=== PATIENT | male | born 1950 | race Caucasian/White ===

== ENCOUNTER 2019-01-14 19:48 | Emergency (ER) | payer MEDICARE, BC ==
--- NOTE | 2019-01-14 20:30 | ED ---
Abdominal Pain/Male - HPI Summary HPI Summary: 68 year old M presenting to [facility] with a chief complaint of left flank pain that does not radiate and that began two hours ago. The patient rates the pain 7 /10 in severity. Symptoms aggravated by nothing. Symptoms alleviated by nothing. Patient denies nausea, vomiting, dysuria, fever and chills. Patient had shock wave treatment done in [place] in October 2018. He had lithroscopy with stent placed one month ago for left kidney stone, and his doctor thought that remaining segment of kidney stone would pass upon removal of stent. - History of Current Complaint Chief Complaint: EDFlankPain Stated Complaint: JIN GOT A KIDNEY STONE ACTING UP PER PT Time Seen by Provider: 01/14/19 20:16 Hx Obtained From: Patient Onset/Duration: Lasting Hours - 2, Still Present Timing: Constant Severity Currently: Moderate Pain Intensity: 7 Pain Scale Used: 0-10 Numeric Location: Flank - left Radiates: No Aggravating Factor(s): Nothing Alleviating Factor(s): Nothing Associated Signs And Symptoms: Positive: Negative - nausea, vomiting, dysuria, and fever - Allergies/Home Medications Allergies/Adverse Reactions: Allergies Allergy/AdvReac Type Severity Reaction Status Date / Time No Known Allergies Allergy Verified 01/24/15 16:48 PMH/Surg Hx/FS Hx/Imm Hx Previously Healthy: No Endocrine/Hematology History: Denies: Hx Diabetes Cardiovascular History: Reports: Hx Hypertension Denies: Hx Congestive Heart Failure Respiratory History: Reports: Other Respiratory Problems/Disorders - lung nodule found 08/19 GI History: Reports: Other GI Disorders - acid reflux History: Reports: Other Problems/Disorders - kidney stone hx and enlarged prostrate Musculoskeletal History: Reports: Other Musculoskeletal History - disc of neck bulging, trauma to right foot lost toe Sensory History: Reports: Hx Contacts or Glasses Opthamlomology History: Reports: Hx Contacts or Glasses - Cancer History Cancer Type, Location and Year: Skin - Surgical History Surgery Procedure, Year, and Place: hernia x2, gallbladder,lipoma of back Infectious Disease History: No Infectious Disease History: Denies: Traveled Outside the [place] in Last 30 Days - Family History Known Family History: Negative: Blood Disorder - Social History Alcohol Use: Occasionally Hx Substance Use: No Substance Use Type: Reports: None Hx Tobacco Use: Yes Smoking Status (MU): Former Smoker Review of Systems Negative: Fever, Chills Negative: Vomiting, Nausea Positive: flank pain - left. Negative: dysuria All Other Systems Reviewed And Are Negative: Yes Physical Exam - Summary Physical Exam Summary: VITAL SIGNS: Reviewed. GENERAL: Patient is a well-developed and nourished male who is lying comfortable in the stretcher. Patient is not in any acute respiratory distress. HEAD AND FACE: No signs of trauma. No ecchymosis, hematomas or skull depressions. No sinus tenderness. EYES: PERRLA, EOMI x 2, No injected conjunctiva, no nystagmus. EARS: Hearing grossly intact. Ear canals and tympanic membranes are within normal limits. MOUTH: Oropharynx within normal limits. NECK: Supple, trachea is midline, no adenopathy, no JVD, no carotid bruit, no c- spine tenderness, neck with full ROM. CHEST: Symmetric, no tenderness at palpation LUNGS: Clear to auscultation bilaterally. No wheezing or crackles. CVS: Regular rate and rhythm, S1 and S2 present, no murmurs or gallops appreciated. ABDOMEN: Soft, non-tender. No signs of distention. No rebound no guarding, and no masses palpated. Bowel sounds are normal. EXTREMITIES: FROM in all major joints, no edema, no cyanosis or clubbing. NEURO: Alert and oriented x 3. No acute neurological deficits. Speech is normal and follows commands. SKIN: Dry and warm Triage Information Reviewed: Yes Vital Signs On Initial Exam: Initial Vitals Temp Pulse Resp BP Pulse Ox 98.3 F 80 14 151/95 97 01/14/19 19:54 01/14/19 19:54 01/14/19 19:54 01/14/19 19:54 01/14/19 19:54 Vital Signs Reviewed: Yes Diagnostics - Vital Signs Vital Signs Temp Pulse Resp BP Pulse Ox 01/14/19 19:54 98.3 F 80 14 151/95 97 - Laboratory Result Diagrams: 01/14/19 20:44 01/14/19 22:12 Lab Statement: Any lab studies that have been ordered have been reviewed, and results considered in the medical decision making process. - CT CT Abd/Pel CT Interpretation Completed By: Radiologist Summary of CT Findings: CT- Abd/Pel as per radiologist findings reveals 1. 6 mm calcified stone located in the proximal left ureter. This causes. moderately severe left-sided hydronephrosis with perinephric stranding. 2. Moderate size hiatal hernia. 3. Cholecystectomy. 4. 5 mm pulmonary nodule.For patients at low risk (minimal or absent history of. smoking and of other known risk factors ), no routine follow-up is indicated. For patients at high risk (history of smoking or of other known risk factors),. consider optional CT at 12 months. ( Shelley et al., Fleischner Society, 2017). The ED Physician has reviewed this radiology report. Abdominal Pain Male Course/Dx - Course Course Of Treatment: 68 year old M presenting to [facility] with a chief complaint of left flank pain that does not radiate and that began two hours ago. Patient denies nausea, vomiting, dysuria, and fever. He had lithroscopy with stent placed one month ago for left kidney stone, and his doctor thought that remaining segment of kidney stone would pass upon removal of stent. In ED course , patient was given Morphine, Zofran, and IV fluids. Labs were unremarkable. CT Abd/Pel shows, per radiologist, a 6 mm stone. We discussed the findings to the patient and we discussed plan for the patient to follow up with Dr. Chaves tomorrow. The patient is aggreable to this plan. He will be discharged home with a dx of left ureteral stone and renal colic. - Diagnoses Provider Diagnoses: Left ureteral stone, Renal colic Discharge - Sign-Out/Discharge Documenting (check all that apply): Patient Departure - Discharge Home Patient Received Moderate/Deep Sedation with Procedure: No - Discharge Plan Condition: Stable Disposition: HOME Prescriptions: oxyCODONE/Acetamin 5/325 MG* [Percocet 5/325 TAB*] 1 tab PO Q6H PRN #14 tab MDD 4 PRN Reason: Pain Tamsulosin CAP* [Flomax CAP*] 0.4 mg PO BEDTIME #7 cap Patient Education Materials: Renal Colic (ED), Ureteral Stones (ED) Referrals: Dawn Herman MD [Primary Care Provider] - Additional Instructions: Follow up with Dr. Chaves by tomorrow. RETURN TO THE EMERGENCY DEPARTMENT FOR CHANGING OR WORSENING SYMPTOMS. FOLLOW UP WITH Primary Care Physician IN 1-2 DAYS. - Attestation Statements Document Initiated by Scribe: Yes Documenting Scribe: Thelma Nazario Provider For Whom Scribe is Documenting (Include Credential): Magda Ag MD Scribe Attestation: Thelma Pérez, scribed for Magda Ag MD on 01/15/19 at 0106. Status of Scribe Document: Ready
[2019-01-14] MEDS ORDERED: Ondansetron INJ* 2 MG/ML VIAL IV ONE (20:31)
[2019-01-14] MEDS ORDERED: NS 0.9% 1000 ML** 1,000 ML IV ONE (20:31)
[2019-01-14] MEDS ORDERED: Morphine 4 MG/ML VIAL (1 ml) 4 MG/ML VIAL IV ONE (20:31)
[2019-01-14 21:03] LABS: ABS Basophils 0.1 10^3/ul (0-0.2); ABS Eosinophils 0.4 10^3/ul (0-0.6); ABS Lymphocytes 2.4 10^3/ul (1.0-4.8); ABS Monocytes 1.1 10^3/ul (0-0.8); ABS Neutrophils 8.1 10^3/ul (1.5-7.7); ABS Nucleated RBC 0 10^3/ul; Eosinophil % 3.2 %; Hematocrit 43 % (36-46); Hemoglobin 14.6 g/dL (14.0-18.0); Mean Corpuscular HGB Conc 34 g/dL (31-36); Mean Corpuscular Hemoglobin 31 pg (27-31); Mean Corpuscular Volume 92 fL (80-94); Mean Platelet Volume 7.7 fL (7.4-10.4); Nucleated Red Blood Cells % 0; Platelet Count 213 10^3/uL (150-450); Red Blood Count 4.73 10^6 /uL (4.18-5.48); Red Cell Distribution Width 14 % (10.5-15); White Blood Count 12.1 10^3/uL (3.5-10.8)
[2019-01-14 21:38] LABS: Albumin 4.1 g/dL (3.2-5.2); CO2 Carbon Dioxide 20 mmol/L (22-32); Chloride 108 mmol/L (101-111); Sodium 139 mmol/L (135-145)
[2019-01-14 21:40] LABS: Anion Gap 11 mmol/L (2-11)
[2019-01-14 21:44] LABS: ALT 21 U/L (7-52); Alkaline Phosphatase 60 U/L (34-104); BUN/Creatinine Ratio 21.1 (8-20); Blood Urea Nitrogen 27 mg/dL (6-24); C Reactive Protein 1.13 mg/L (<8.01); EGFR African American 67.4 (>60); EGFR Non-African American 55.7 (>60); Globulin 2.1 g/dL (2-4); Glucose 83 mg/dL (70-100); Total Protein 6.2 g/dL (6.4-8.9)
[2019-01-14] MEDS ORDERED: Ketorolac INJ* 15 MG/ML 1 ML VIAL ONE (21:53)
[2019-01-14] MEDS ORDERED: Ketorolac INJ* 30 MG/ML 1 ML VIAL IV PUSH ONE (21:53)
[2019-01-14 22:01] LABS: Urine Appearance Clear; Urine Bilirubin Negative (Negative); Urine Blood Negative (Negative); Urine Color Straw; Urine Glucose Negative (Negative); Urine Ketones Negative (Negative); Urine Nitrite Negative (Negative); Urine Protein Negative (Negative); Urine Specific Gravity 1.014 (1.010-1.030); Urine Urobilinogen Negative (Negative)
[2019-01-14 22:35] LABS: Magnesium 2.2 mg/dL (1.9-2.7)
[2019-01-14] MEDS ORDERED: Tamsulosin CAP* 0.4 MG PO ONE (23:41)
[2019-01-14 23:53] VITALS: BP 142/88
== END 2019-01-14 23:51 | disposition home or self-care (01) ==
LOC: ED 19:48
DX: N13.2 Hydronephrosis with renal and ureteral calculous obstruction (principal); K44.9 Diaphragmatic hernia without obstruction or gangrene; R91.1 Solitary pulmonary nodule; Z90.49 Acquired absence of other specified parts of digestive tract; I10 Essential (primary) hypertension; Z87.891 Personal history of nicotine dependence
CPT/HCPCS: 36415; 74176; 80053; 81003; 83735; 85025; 86140; 96361; 96374; 96375; 99282; J1885; J2270; J2405

== ENCOUNTER 2019-01-15 14:27 | Day surgery (SDC) | payer MEDICARE, BC ==
--- NOTE | 2019-01-15 13:30 | HP ---
CC: Dr. Dawn Herman* HISTORY AND PHYSICAL: DATE OF PLANNED ADMISSION AND SURGERY: 01/15/19 HISTORY OF PRESENT ILLNESS: Mr. Rolle is a 68-year-old white male who is admitted with an obstructing proximal left ureteral calculus for cystoscopy and placement of left ureteral stent. Mr. Rolle was in [place] this past winter. He had a CT of the abdomen and pelvis because of ill-defined right abdominal pain. The CT showed an incidental finding of a 1-cm calculus in the left kidney without associated hydronephrosis and no other abnormalities. The patient consulted Dr. Patel, urologist in [place], [place] and had placement of left ureteral stent and shockwave lithotripsy of the left renal calculus. There was partial fragmentation of the stone. The stent was kept in place for about 5 weeks and was then removed. The patient passed only a few small stone fragments. He was doing fine and had remained asymptomatic until last night when he presented to the emergency room with symptoms of left renal colic. There was no associated fever or chills. He had a noncontrast CT of the abdomen and pelvis, which showed a 7-mm calculus in the proximal left ureter just distal to the ureteropelvic junction associated with moderate left hydronephrosis and stranding around the left kidney. No other abnormalities were noted and no other calculi seen. The patient was evaluated in my office this morning. He was still having on and off episodes of left flank pain. He is now admitted for urgent placement of left ureteral stent in preparation for definitive treatment of the stone. PAST MEDICAL HISTORY AND SYSTEM REVIEW: The patient is hypertensive, maintained on lisinopril 10 mg daily and on Vytorin . He is on 1 baby aspirin per day. He is on omeprazole 20 mg daily for GERD. He is on folic acid and vitamin D supplement. He takes Cialis as needed. ALLERGIES: He does not think he has any allergies, although he might have had some reaction to PENICILLIN in childhood. FAMILY HISTORY: Negative for prostate carcinoma and negative renal calculus disease. SOCIAL HISTORY: The patient is a nonsmoker. He drinks about 2 alcoholic drinks per day. PHYSICAL EXAMINATION GENERAL: He is a pleasant, healthy, moderately overweight white male who is in no acute pain at this time. VITAL SIGNS: Blood pressure 130/80, pulse of 80, oxygen saturation 97% on room air, temperature 96. HEART: Regular and rhythmic. No murmurs. LUNGS: Clear. ABDOMEN: Soft. There is mild left CVA tenderness. Rest of the abdominal exam is normal. EXTERNAL GENITALIA: Normal. RECTAL: Exam done last summer by myself showed a slightly enlarged but nonsuspicious prostate. IMPRESSION: 1. Proximal left ureteral calculus causing left renal colic, status post shockwave lithotripsy in [place] 3 months ago. 2. Hypertension. Well controlled on treatment. PLAN: Plan is for cystoscopy and insertion of left ureteral stent. The patient will be brought back in at a later date for shockwave lithotripsy of the left calculi with removal of the left ureteral stent. I discussed the above plans in detail with the patient. All his questions were answered. [id number]/CPS #: [id number]
[2019-01-15] MEDS ORDERED: Levofloxacin 750 MG IVPREMIX(* 750 MG/150 ML BAG ONE (15:29)
[2019-01-15] MEDS ORDERED: Levofloxacin 750 MG IVPREMIX(* 750 MG/150 ML BAG IVPB ONE (16:00)
[2019-01-15] MEDS ORDERED: Iohexol 180 (CONTRAST) 10 ML SDV IV ONE (16:05)
[2019-01-15] MEDS ORDERED: Sodium Citrate/Citric Acid* 15 ML UDC PO ONE (16:27)
[2019-01-15] MEDS ORDERED: Metoclopramide IV* 5 MG/ML 2 ML VIAL IV SLOW PU ONE (16:27)
[2019-01-15] MEDS ORDERED: Metoclopramide IV* 5 MG/ML 2 ML VIAL ONE (16:27)
[2019-01-15] MEDS ORDERED: Sodium Citrate/Citric Acid* 15 ML UDC ONE (16:27)
[2019-01-15] MEDS ORDERED: fentaNYL* 50 MCG/ML 2 ML VIAL (100 MCG VIAL) ONE (16:56)
[2019-01-15] MEDS ORDERED: Lidocaine 2% PF * 5 ML VIAL ONE (16:56)
[2019-01-15] MEDS ORDERED: Propofol* 10 MG/ML 20 ML BTL ONE (16:56)
[2019-01-15] MEDS ORDERED: Naloxone* 0.4 MG/ML 1 ML VIAL IV PRN (18:12)
[2019-01-15] MEDS ORDERED: Ondansetron INJ* 2 MG/ML VIAL IV PRN (18:12)
[2019-01-15] MEDS ORDERED: fentaNYL* 50 MCG/ML 2 ML VIAL (100 MCG VIAL) IV PRN (18:12)
[2019-01-15] MEDS ORDERED: Metoprolol Tartrate IV* 1 MG/ML 5 ML VIAL ONE (18:12)
[2019-01-15 18:27] VITALS: BP 142/86
--- NOTE | 2019-01-16 02:13 | OP ---
CC: Dr. Dawn Herman * DATE OF OPERATION: 01/15/19 - [facility] DATE OF : 48 SURGEON: James Chaves MD ANESTHESIOLOGIST: Dr. Flex Calero. ANESTHESIA: General. PRE-OP DIAGNOSIS: Proximal left ureteral calculus (8 mm). POST-OP DIAGNOSIS: Proximal left ureteral calculus (8 mm). OPERATIVE PROCEDURE: 1. Cystoscopy. 2. Left ureteroscopy, laser lithotripsy and extraction of left ureteral calculus. 3. Left retrograde pyelography and placement of left ureteral stent (7-Japanese). INDICATION FOR PROCEDURE: Mr. Rolle is a 68-year-old white male who underwent shock wave lithotripsy of a 1 cm calculus in the left kidney in [place], [place], about 3 months ago. Initially, he had stent placement and shock wave lithotripsy. The stent was removed 5 weeks later. The patient did not pass any stone fragments. He was doing fine until last night when he presented to the emergency room with severe left renal colic. He did not have any fever or chills. Non-contrast CT of the abdomen and pelvis showed a 1 cm calculus in the proximal left ureter just distal to the ureteropelvic junction associated with moderate hydronephrosis. No other abnormalities or calculi were noted. The patient is taken to the operating room for left ureteral stent placement in preparation for definitive treatment of the stone. PATHOLOGY: At fluoroscopy, a radio-opaque calculus was noted at the level of L3 - L4. At cystoscopy, the penile and bulbar urethra looked normal. The prostatic urethra measured about 2.5 cm in length and there was moderate obstruction by prostate enlargement. Examination of the bladder showed normal mucosa. No suspicious bladder lesions were seen. No calculi or diverticula were noted. The ureteral orifices looked normal. Upon left ureteroscopy, the ureter seemed dilated and easily passable with the ureteroscope probably from the fact that the patient had the stent for 5 weeks recently. The calculus was identified in the proximal ureter. It had the gross appearance of a calcium oxalate stone. DESCRIPTION OF PROCEDURE: After successful general anesthesia, the patient was placed in the lithotomy position and was prepped and draped for a cystoscopy. Cystoscopy was performed. The bladder was inspected and the above findings were noted. A flexible-tip guidewire was then introduced into the left ureter and the calculus was identified to be at the level of L3-L4. The calculus seemed reachable with the ureteroscope and it was decided to proceed with the left ureteroscopy. A size 6.5 semi rigid ureteroscope was introduced inside the bladder and a basket was introduced through the port of the ureteroscope. The ureteroscope was introduced inside the left ureter and could be passed without difficulty all the way into the proximal ureter, where the calculus was visualized. The basket was then deployed and the stone was engaged to avoid its proximal migration. A 550 micron laser fiber was then introduced through the other port of the ureteroscope and the calculus was broken into multiple fragments using the laser energy. The fragments were then extracted with the larger fragment measuring about 6 mm in size. Several passes into the ureter were done until all the fragments were extracted. A final inspection showed intact ureteral wall without any evidence of ureteral injury. There was expected hyperemia of the ureteral mucosa at the sight of the stone impaction. Retrograde pyelography was then performed delineating the ureter at the site of the lithotripsy and there was no evidence of any extravasation. A size 7-Japanese stent was then placed with the proximal end coiling in the renal pelvis and the distal end coiling inside the bladder. There was good drainage of contrast from the kidney and no extravasation. The patient tolerated the procedure well and left the operating room in good condition. The plan is to leave the stent in place for 10 to 12 days. It will be removed in the office under local anesthesia. [id number]/CPS #: [id number] MTDD
== END 2019-01-15 18:47 | disposition home or self-care (01) ==
LOC: OR 14:27
PROVIDERS: ATTEND Urology
DX: N13.2 Hydronephrosis with renal and ureteral calculous obstruction (principal); I10 Essential (primary) hypertension; Z87.891 Personal history of nicotine dependence; K21.9 Gastro-esophageal reflux disease without esophagitis; F41.9 Anxiety disorder, unspecified
CPT/HCPCS: 74420; 82365; 88300; A9270-GY; C1876; J2704; J2765; J3010; J3490